=== PATIENT | male | born 1945 | race Caucasian/White ===

== ENCOUNTER 2018-11-11 07:52 | Inpatient (IN) ==
[2018-11-11] MEDS ORDERED: SODIUM CHLORIDE 0.9% INJ PRN (11:05)
[2018-11-11] MEDS ORDERED: PHENERGAN IV PRN (11:05)
[2018-11-11] MEDS: DUONEB (A & A) INH SCH ×3 (11:29→20:32)
--- NOTE | 2018-11-11 11:38 | Diag Imaging Result Doc PS360 ---
EXAM: CHEST-PORTABLE 11/11/2018 HISTORY: RLL PNEUMONIA TECHNIQUE: AP portable at 1127 COMMENT: There is alveolar opacification in the right lower lobe and possibly to some extent in the left lower lobe. There has been no appreciable change since 11/10/2018. IMPRESSION: Right lower lobe pneumonia. Electronically signed by Alberto Barnett 11/11/2018 11:36 AM
[2018-11-11] MEDS: DEXAMETHASONE 0.1% RIGHT EYE SCH ×4 (11:40→20:47)
[2018-11-11 11:50] LABS: ALLEN TEST YES; BE 1.7 mmoll (-3.0-3.0); BLOOD TYPE ARTERIAL; HCO3-(ACT) 26.2 mmoll (20.0-26.0); O2(CT) 18.6 mL/dL (15.0-23.0); O2HB 94.9 % (95.0-99.0); PCO2(98.6) 31 mmHg (35-45); PO2(98.6) 79 mmHg (60-100); SAMPLE BLOOD; SAO2 98.1 % (95.0-100.0); THB 13.9 g/dL (11.5-17.4)
[2018-11-11 11:51] LABS: MODALITY ROOM AIR
[2018-11-11 11:56] LABS: BASO# 0.02 X1000 (0.0-0.2); BASO% 0.1 % (0.0-0.8); EOS# 0.01 X1000 (0.0-0.7); EOS% 0.1 % (0.0-10.0); HEMATOCRIT 37.5 % (42.0-52.0); HEMOGLOBIN 13.3 g/dL (14.0-18.0); IMM GRAN# 0.03 X1000 (0.0-0.04); IMM GRAN% 0.2 % (0.0-0.5); LYMPH# 0.77 X1000 (1.2-3.4); LYMPH% 5.5 % (20.5-51.1); MCH 31.7 PG (27-31); MCHC 35.5 g/dL (33-37); MCV 89.5 FL (81-99); MONO% 7.1 % (1.7-9.3); MPV 10.5 FL (7.4-10.4); NEUT# 12.27 X1000 (1.4-6.5); PLT 144 X1000 (130-400); RBC 4.19 XMIL (4.7-6.1); RDW 12.9 % (11.5-14.5)
[2018-11-11] MEDS: NS 1,000 ML IV SCH (11:59)
[2018-11-11] MEDS: LEVAQUIN 500 MG/D5W 500 MG/100 ML IVPB IV SCH (12:00)
[2018-11-11] MEDS: NEURONTIN PO SCH ×2 (12:01→20:47)
[2018-11-11] MEDS: ASPIRIN PO SCH (12:01)
[2018-11-11] MEDS: PLAVIX PO SCH (12:02)
[2018-11-11] MEDS: COZAAR PO SCH (12:02)
--- NOTE | 2018-11-11 12:06 | HISTORY AND PHYSICAL ---
HISTORY OF PRESENT ILLNESS: Mr. Mario Subramanian is a 73-year-old gentleman with a history of multiple medical problems including ischemic heart disease, mixed hyperlipidemia, type 2 non insulin-dependent diabetes mellitus, mixed hyperlipidemia, stage ALONDRA follicular lymphoma, and post herpetic neuralgia who is well known to me. He has been with complaint of fever as high as 103, hard shaking rigors, nonproductive cough, pleuritic chest pain with deep inspiration and paroxysms of cough, and diffuse myalgias since Thursday. He was seen in the ER last night. A chest x-ray demonstrated a right lower lobe pneumonia. He had a leukocytosis of 11,000 with a left shift. He was discharged home on oral Levaquin. He continues with a persistent nonproductive cough, pleuritic chest pain, nausea, vomiting and had a fever of 101 degrees last night. PAST MEDICAL HISTORY: Ischemic heart disease, mixed hyperlipidemia, primary hypothyroidism, type 2 aic-wphqvib-fpqovxprd diabetes mellitus controlled, stage ALONDRA follicular lymphoma, and post herpetic neuralgia. PAST SURGICAL HISTORY: Bilateral cataract surgery and bilateral inguinal hernia repair. ALLERGIES: No known drug allergies. FAMILY HISTORY: His father at the age of 65. He had hypertension ischemic heart disease and acute [place]. His mother at the age of 71. She had diabetes and ischemic heart disease. SOCIAL HISTORY: He never smoked. He does not consume alcoholic beverages. He is and lives at home with his spouse. MEDICATIONS: 1. Victoza 18 mcg 0.6 mg daily. 2. Losartan 50 mg daily. 3. Cymbalta 30 mg daily. 4. Lovastatin 10 mg at bedtime. 5. Synthroid 100 mg daily. 6. Metformin 500 mg b.i.d. REVIEW OF SYSTEMS: He has lost 10 pounds.HEENT: He wears glasses. He is hard of hearing. CV: No chest pain, palpitations, or anginal equivalents. Pulmonary: See HPI. GI: See HPI. Endocrine: No polyuria. No polydipsia. No cold or heat intolerance. Skin: No easy bruisability. : No leakage of urine with coughing or laughing. Skin: No easy bruisability. Neurologic: No migraines or seizures. Psychiatric: No history of depression. PHYSICAL EXAMINATION: GENERAL: This is an acutely ill-appearing 73-year-old gentleman in no apparent distress. VITAL SIGNS: Blood pressure 128/60, pulse 84, temperature 100.3 degrees and weight 175 pounds. HEENT: Fundi with arteriolar wall thickening. Pupils equal, round, and reactive to light. Extraocular eye movements intact. TMs without bullae. NECK: Supple. No masses, JVD or bruits. CV: Regular rate and rhythm. LUNGS: Crackles in the right base. ABDOMEN: Soft, nontender with active bowel sounds. EXTREMITIES: Without edema. SKIN: No palpable purpura. GENITOURINARY AND RECTAL: Exams deferred. NEUROLOGIC: Nonfocal. ASSESSMENT AND PLAN: 1. Right lower lobe pneumonia. Given his immunocompromised state with a history of diabetes and stage ALONDRA follicular lymphoma, I am concerned that he has a gram-negative pneumonia. He had a leukocytosis with a left shift. I am going to admit him to [facility]. I will begin Levaquin 500 mg IV daily and Zosyn 4.5 g IV q.6 hours pending sputum and blood cultures. We will begin supplemental O2 as needed and DuoNeb nebulizer treatments. 2. Type 2 jxy-amglpcs-hvphtcxex diabetes mellitus. We will place him on an 1800 calorie ADA diet, pattern sugars, and a Humulin R sliding scale. We will continue metformin and Victoza. 3. Primary hypothyroidism. We will continue lovastatin 10 mg at night. 4. Given the patient's clinical presentation and comorbid conditions, I believe that admission to the hospital for the management of a suspected gram-negative pneumonia is both reasonable and necessary. I anticipate that he will be in the hospital for at least 2 midnights, and I will therefore place him in inpatient status. We will hold Lovenox as he is really taking aspirin and Plavix. cc: Jennifer Wright MD
[2018-11-11 12:08] LABS: BANDS 8 % (0-1); LYMPHS 5 % (21-51); MONO 4 % (1-9); SEGS 83 % (42-75)
[2018-11-11 12:11] LABS: CREATININE 1.5 mg/dL (0.7-1.2); POTASSIUM 3.9 mmol/L (3.5-5.1)
[2018-11-11 12:12] LABS: CALCIUM 9.6 mg/dL (8.8-10.2)
[2018-11-11] MEDS: ALLEGRA PO SCH (12:13)
[2018-11-11] MEDS: HUMULIN R SUBQ SCH ×2 (13:16→18:00)
[2018-11-11] MEDS: ZOSYN 4.5 GM in NS 100 ML IV SCH ×2 (13:16→20:46)
[2018-11-11] MEDS: GLUCOPHAGE PO SCH (17:01)
[2018-11-11] MEDS: MEVACOR PO SCH (17:12)
[2018-11-11] MEDS: DESYREL PO PRN (20:46)
[2018-11-11] MEDS: TYLENOL PO PRN (20:46)
[2018-11-12] MEDS: DUONEB (A & A) INH SCH ×4 (03:34→20:51)
[2018-11-12] MEDS: HUMULIN R SUBQ SCH ×5 (03:45→20:51)
[2018-11-12] MEDS: ZOSYN 4.5 GM in NS 100 ML IV SCH ×4 (03:45→21:30)
[2018-11-12] MEDS: NS 1,000 ML IV SCH ×2 (03:45→17:19)
[2018-11-12] MEDS: SYNTHROID PO SCH ×2 (05:56→06:02)
[2018-11-12] MEDS ORDERED: INSULIN PEN NEEDLES ONE (07:34)
[2018-11-12] MEDS: PLAVIX PO SCH (08:46)
[2018-11-12] MEDS: ALLEGRA PO SCH (08:46)
[2018-11-12] MEDS: NEURONTIN PO SCH ×2 (08:46→21:33)
[2018-11-12] MEDS: GLUCOPHAGE PO SCH ×2 (08:46→17:09)
[2018-11-12] MEDS: COZAAR PO SCH (08:46)
[2018-11-12] MEDS: ASPIRIN PO SCH (08:46)
[2018-11-12] MEDS: DEXAMETHASONE 0.1% RIGHT EYE SCH ×4 (08:47→21:31)
[2018-11-12] MEDS: VICTOZA SUBQ SCH (08:53)
[2018-11-12] MEDS ORDERED: VICTOZA SUBQ SCH (09:00)
--- NOTE | 2018-11-12 09:49 | PROGRESS NOTE ---
DATE: 11/12/2018 SUBJECTIVE: Mr. Subramanian was admitted to [facility] with a right lower lobe pneumonia. Chest x-ray shows a dense right lower lobe infiltrate. Because of his immunocompromised state, leukocytosis and consolidated pneumonia. I suspect that he has a gram-negative pneumonia. He continues to run a low-grade fever with a T max of 100.5, cough productive of clear to yellowish sputum and pleuritic chest pain with deep inspiration and fits of coughing. He is breathing comfortably. He is maintaining O2 saturations of 95% to 99 percent on room air. He has a longstanding history of essential hypertension. His blood pressure is well controlled. Systolic blood pressures are ranging from 119 to 129 whereas his diastolic blood pressures range from 52 to 60. He denies any chest pain, palpitations, or anginal equivalents. He has a history of type 2 slf-gfkyzlb-igljcmzgm diabetes mellitus. Blood sugars are fluctuating. He has polyuria and polydipsia. OBJECTIVE: Vital signs: Temperature 100.1 degrees pulse 85, respirations 20, BP 129/52. CV: Regular rate and rhythm. Lungs: Diminished breath sounds in the right base. Abdomen: Soft, nontender, with active bowel sounds. No hepatosplenomegaly. No abdominal bruits. ASSESSMENT AND PLAN: 1. Gram-negative pneumonia. We will continue DuoNeb nebulizer treatments, and broad-spectrum antibiotics including Levaquin and Zosyn pending sputum and blood cultures. I will recheck a CBC with diff, BMP and a 2 view chest x-ray in the morning. 2. Hypertension his blood pressure is stable. We will continue losartan 50 mg daily. 3. Type 2 noninsulin-dependent diabetes mellitus. Blood sugars are too high. We will continue pattern sugars, Humulin R sliding scale, but I will increase the dosage of Victoza to 1.2 mg daily. cc: Jennifer Wright MD
[2018-11-12] MEDS: TYLENOL PO PRN ×2 (11:15→21:26)
[2018-11-12] MEDS: LEVAQUIN 500 MG/D5W 500 MG/100 ML IVPB IV SCH (11:16)
[2018-11-12] MEDS: MEVACOR PO SCH (17:09)
[2018-11-12] MEDS ORDERED: VANCOMYCIN 1 GM/NS 1 GM/250 ML IVPB IV ONE (20:00)
[2018-11-12] MEDS: DESYREL PO PRN (21:40)
[2018-11-13] MEDS: ZOSYN 4.5 GM in NS 100 ML IV SCH ×4 (01:52→20:54)
[2018-11-13] MEDS: NS 1,000 ML IV SCH ×2 (02:05→16:36)
[2018-11-13] MEDS: DUONEB (A & A) INH SCH ×4 (03:51→20:19)
[2018-11-13] MEDS: SYNTHROID PO SCH (06:12)
[2018-11-13] MEDS: HUMULIN R SUBQ SCH ×4 (06:32→20:52)
[2018-11-13] MEDS: ASPIRIN PO SCH (08:18)
[2018-11-13] MEDS: ALLEGRA PO SCH (08:18)
[2018-11-13] MEDS: COZAAR PO SCH (08:18)
[2018-11-13] MEDS: GLUCOPHAGE PO SCH ×2 (08:18→16:54)
[2018-11-13] MEDS: VICTOZA SUBQ SCH (08:19)
[2018-11-13] MEDS: PLAVIX PO SCH ×2 (08:19→08:22)
[2018-11-13] MEDS: NEURONTIN PO SCH ×2 (08:19→20:52)
[2018-11-13] MEDS: DEXAMETHASONE 0.1% RIGHT EYE SCH ×4 (08:26→21:10)
[2018-11-13 08:33] LABS: BASO# 0.02 X1000 (0.0-0.2); BASO% 0.3 % (0.0-0.8); EOS# 0.17 X1000 (0.0-0.7); EOS% 2.2 % (0.0-10.0); HEMATOCRIT 30.3 % (42.0-52.0); HEMOGLOBIN 10.7 g/dL (14.0-18.0); IMM GRAN# 0.03 X1000 (0.0-0.04); IMM GRAN% 0.4 % (0.0-0.5); LYMPH# 0.44 X1000 (1.2-3.4); LYMPH% 5.6 % (20.5-51.1); MCH 31.9 PG (27-31); MCHC 35.3 g/dL (33-37); MCV 90.4 FL (81-99); MONO# 0.48 X1000 (0.11-0.59); MONO% 6.1 % (1.7-9.3); MPV 10.8 FL (7.4-10.4); NEUT# 6.71 X1000 (1.4-6.5); NEUT% 85.4 % (42.2-75.2); PLT 139 X1000 (130-400); RBC 3.35 XMIL (4.7-6.1); RDW 12.7 % (11.5-14.5); WBC 7.85 X1000 (4.8-10.8)
[2018-11-13 08:44] LABS: CALCIUM 8.6 mg/dL (8.8-10.2); CREATININE 1.4 mg/dL (0.7-1.2); POTASSIUM 3.3 mmol/L (3.5-5.1)
[2018-11-13] MEDS ORDERED: KLOR-CON PO ONE (08:49)
[2018-11-13 09:12] LABS: BANDS 6 % (0-1); EOS 4 % (1-10); LYMPHS 4 % (21-51); MONO 8 % (1-9); NRBC 1 % (0-0); SEGS 78 % (42-75)
[2018-11-13] MEDS: LEVAQUIN 500 MG/D5W 500 MG/100 ML IVPB IV SCH (11:43)
--- NOTE | 2018-11-13 12:29 | Diag Imaging Result Doc PS360 ---
CHEST-2 VIEWS - 11/13/2018 INDICATION: RLL PNEUMONIA COMPARISON: 11/11/2018 FINDINGS: Stable right lower lobe pneumonia. No pneumothorax or pleural effusion. Heart size and pulmonary vascularity is normal. IMPRESSION: Stable right lower lobe pneumonia. Electronically signed by Sanjay Velasquez 11/13/2018 12:27 PM
--- NOTE | 2018-11-13 15:15 | PROGRESS NOTE ---
DATE: 11/13/2018 Mr. Subramanian was admitted to [facility] with a right lower lobe pneumonia. Clinically, he continues to improve. He did have a low-grade fever of 99 this morning. He continues with a cough productive of clear to yellowish sputum. Pleuritic chest pain has improved. He is breathing comfortably. O2 saturations are in the range of 95% to 97% on room air. Blood pressure is stable. Blood sugars are trending down. Blood sugars have ranged from 145 to 155 since increasing the dosage of Victoza. He has a temperature of 99.0 degrees, pulse 74, respirations 19, BP 147/71. CV regular rate and rhythm. Lungs, crackles in the right base with improved aeration. Abdomen is soft, nontender, with active bowel sounds.Extremities: Without edema. A CBC demonstrated a white count of 7.85, hemoglobin 10.7, hematocrit 30.3, and a platelet count of 139,000. Electrolytes demonstrate the following: Sodium 139, potassium 3.3, chloride 103, CO2 23, BUN 19, creatinine 1.4, glucose 148. ASSESSMENT AND PLAN: 1. Gram-negative pneumonia. Clinically, he continues to improve. Blood cultures x2 were negative. We will continue Zosyn and Levaquin. We will increase his activity. I have ordered a chest x-ray for today. 2. Type 2 noninsulin-dependent diabetes mellitus. We will advance him to an 1800 calorie ADA diet, pattern sugars, Humulin R sliding scale. Continue his home dosage of Victoza and metformin. 3. Hypertension. Blood pressure is stable. We will continue his current regimen of medications. We will increase his activity. If he remains afebrile today, I hope to potentially be able to discharge him home on oral antibiotics tomorrow. cc: Jennifer Wright MD
[2018-11-13] MEDS: MEVACOR PO SCH (16:54)
[2018-11-13] MEDS: TYLENOL PO PRN (20:52)
[2018-11-13] MEDS: DESYREL PO PRN (21:10)
[2018-11-14] MEDS: ZOSYN 4.5 GM in NS 100 ML IV SCH ×2 (02:53→08:54)
[2018-11-14] MEDS: DUONEB (A & A) INH SCH ×2 (04:27→08:35)
[2018-11-14] MEDS: SYNTHROID PO SCH (06:43)
[2018-11-14] MEDS: HUMULIN R SUBQ SCH ×2 (06:43→11:23)
[2018-11-14 08:12] VITALS: BP 140/56
[2018-11-14] MEDS: ASPIRIN PO SCH (08:55)
[2018-11-14] MEDS: GLUCOPHAGE PO SCH (08:55)
[2018-11-14] MEDS: NEURONTIN PO SCH (08:55)
[2018-11-14] MEDS: ALLEGRA PO SCH (08:55)
[2018-11-14] MEDS: VICTOZA SUBQ SCH (08:56)
[2018-11-14] MEDS: COZAAR PO SCH (08:57)
[2018-11-14] MEDS: PLAVIX PO SCH (08:58)
[2018-11-14] MEDS: DEXAMETHASONE 0.1% RIGHT EYE SCH (08:58)
[2018-11-14] MEDS ORDERED: PREVNAR 13 IM ONE (10:11)
--- NOTE | 2018-11-14 13:46 | DISCHARGE SUMMARY ---
ADMISSION DATE: 11/11/2018 DISCHARGE DATE: 11/14/2018 DISCHARGE DIAGNOSES: 1. Gram-negative pneumonia. 2. Essential hypertension. 3. Stage III chronic renal insufficiency. 4. Primary hypothyroidism. 5. Mixed hyperlipidemia. 6. Type 2 noninsulin-dependent diabetes mellitus complicated by polyneuropathy. 7. Mixed hyperlipidemia. DISCHARGE INSTRUCTIONS: 1. Return to clinic in 7 to 10 days to see me, Dr. Oliver Wright. 2. Activity as tolerated. 3. 1800 calorie ADA diet. 4. Medications: Levofloxacin 500 mg daily for 7 days. Lovastatin 10 mg at bedtime, gabapentin 100 mg b.i.d., Victoza 1.2 mg subcutaneously daily. Levothyroxine 100 mcg daily, metformin 500 mg b.i.d., Ambien 10 mg at bedtime p.r.n. insomnia. Losartan 50 mg daily. Aspirin 81 mg daily. PHYSICAL EXAM: This is a well-developed, well-nourished, 73-year-old gentleman in no apparent distress. Temperature 98.7 degrees, pulse 71, respirations 16, BP 140/56. Height 75 inches, weight 174 pounds, BMI 21.8. CV: Regular rate and rhythm. Lungs: Faint crackles in the right base. He has good air movement throughout all lung liu. Abdomen: Soft, nontender, with active bowel sounds. Extremities: Without edema. Mr. Subramanian presented to the office complaining of fever as high as 103 degrees, hard shaking rigors, cough, and pleuritic chest pain as well as generalized malaise. He was noted to have a leukocytosis of 14,000. A chest x-ray demonstrated a right lower lobe infiltrate. He is an immunocompromised host with a history of follicular lymphoma and underlying diabetes. The patient was admitted to [facility] where he was treated with DuoNeb nebulizer treatments and broad-spectrum antibiotics including Levaquin and Zosyn. Because of his immunocompromised status consolidated pneumonia, leukocytosis, and response to appropriate antibiotics. I suspected that he had a gram-negative pneumonia. Over the course of his hospitalization, he made good clinical progress. He defervesced and remained afebrile. He maintained O2 saturations of 95% to 98% on room air. His cough improved greatly pleuritic chest pain resolved. He will take an additional 7 day course of levofloxacin 500 mg daily and as an outpatient. He has had a Pneumovax after the age of 64. I have administered a Prevnar vaccination today. He does have a history of type 2 noninsulin-dependent diabetes mellitus. He was continued on an 1800 calorie ADA diet, pattern sugars, Humulin R sliding scale, and his regular home dosage of metformin. We titrated upward on the Victoza. His sugars improved with increasing dosages of Victoza. Sugars were ranging from 133 to 161. We will make further adjustments as an outpatient. He has a longstanding history of hypertension. His blood pressure remained well controlled on losartan. He denied any chest pain, palpitations, or anginal equivalents. Having reached maximum hospital benefit, the patient was discharged in stable condition. cc: Jennifer Wright MD
[2018-11-15] MEDS ORDERED: LEVAQUIN PO SCH (09:00)
== END 2018-11-14 11:34 | disposition home or self-care (01) | DRG 178 ==
LOC: DIRADM 07:52 → 3N 10:49
PROVIDERS: ADMIT Internal Medicine; ATTEND Internal Medicine
CPT/HCPCS: 71010; 71020; 71045; 71046; 80048; 80053; 82805; 82948; 85025; 87040; 87070; 87205; 90670; 94640; 94761; 99283; A9270; J1956; J2543; J3370; J7030; XXXXX